=== PATIENT | male | born 1985 | race Caucasian/White ===

== ENCOUNTER 2020-01-09 07:02 | Emergency (ER) | payer SELFPAY ==
[~2020-01-09] VITALS: Ht 185.4 cm; Wt 122.7 kg
[2020-01-09 07:07] VITALS: BP 179/117
== END 2020-01-09 07:40 | disposition home or self-care (01) ==
LOC: ER 07:03
DX: J06.9 Acute upper respiratory infection, unspecified (principal); F17.200 Nicotine dependence, unspecified, uncomplicated
CPT/HCPCS: 99281